=== PATIENT | male | born 1940 | race Caucasian/White ===

== ENCOUNTER 2019-04-19 01:58 | Emergency (ER) | payer MEDICARE ==
[~2019-04-19] VITALS: Ht 157.5 cm; Wt 56.7 kg
--- NOTE | 2019-04-19 02:12 | PHYS DOC ---
Adult General Chief Complaint Chief Complaint: rectal bleeding HPI HPI 78-year-old male [facility] via [facility]. He started to have rectal bleeding yesterday. He describes it as a dark red color. He is not sure if there is stool mixed in it every time or if sometimes is just blood. He's had several episodes, but is unsure how many. He is on Coumadin. His last INR check was 2 weeks ago and was 4.0. The patient decided to come in early this morning because he was feeling lightheaded and dizzy when he went to the bathroom. He thought this was not a good sign and he did not want to pass out at home. Patient does not have a history of GI bleed or ulcer. He has a port because he has multiple myeloma. He is unsure why he is on Coumadin. He denies fever or chills. Review of Systems Review of Systems Constitutional: Denies fever or chills [] Eyes: Denies change in visual acuity, redness, or eye pain [] HENT: Denies nasal congestion or sore throat [] Respiratory: Denies cough or shortness of breath [] Cardiovascular: No additional information not addressed in HPI [] GI: Denies abdominal pain, nausea, vomiting, bloody stools or diarrhea [] : Rectal bleeding[] Musculoskeletal: Denies back pain or joint pain [] Integument: Denies rash or skin lesions [] Neurologic: Dizziness. Denies headache, focal weakness or sensory changes [] Endocrine: Denies polyuria or polydipsia [] All other systems were reviewed and found to be within normal limits, except as documented in this note. Current Medications Current Medications Current Medications Medications (Trade) Dose Ordered Sig/Brody Start Time Stop Time Status Last Admin Dose Admin Pantoprazole Sodium (Protonix Vial) 80 mg 1X ONCE 04/19/19 02:15 04/19/19 02:16 UNV Sodium Chloride 1,000 ml @ 1,000 mls/hr 1X ONCE 04/19/19 02:15 04/19/19 03:14 UNV Physical Exam Physical Exam Constitutional: Well developed, well nourished, no acute distress, non-toxic appearance. [] HENT: Normocephalic, atraumatic, bilateral external ears normal, oropharynx moist, no oral exudates, nose normal. [] Eyes: PERRLA, EOMI, conjunctiva normal, no discharge. [] Neck: Normal range of motion, no tenderness, supple, no stridor. [] Cardiovascular:Heart rate 105, regular rhythm, no murmur [] Lungs & Thorax: Bilateral breath sounds clear to auscultation [] Abdomen: Bowel sounds normal, soft, no tenderness, no masses, no pulsatile masses. [] Skin: Warm, dry, no erythema, no rash. [] Back: No tenderness, no CVA tenderness. [] Extremities: No tenderness, no cyanosis, no clubbing, ROM intact, no edema. [] Neurologic: Alert and oriented X 3, normal motor function, normal sensory function, no focal deficits noted. [] Psychologic: Affect normal, judgement normal, mood normal. Rectal: Normal external exam. Dried and fresh maroon blood at opening of anus. Dark blood with FRANCISCA.[] EKG EKG [] Radiology/Procedures Radiology/Procedures [] Course & Med Decision Making Course & Med Decision Making Pertinent Labs and Imaging studies reviewed. (See chart for details) The patient's blood pressure is 102/63. His heart rate is 85. I have given 1 L of normal saline. He does have melena on rectal exam. The patient's INR is 7.8. I've given 10 mg of vitamin K IV. His hemoglobin is 11. I have no previous for comparison. I believe that his Coumadin needs to be reversed, however he does not need urgent surgery so I will not give FFP or 4 factor PCC. Patient does need to be transferred to a facility with GI available. [facility]. He will go by ambulance. I spoke with the hospitalist, Dr. Rascon and he has accepted the patient for transfer and admission. GI will be consulted in the AM. 36 minutes of critical care time was spent on this patient exclusive of other billable procedures. [] Dragon Disclaimer Dragon Disclaimer This electronic medical record was generated, in whole or in part, using a voice recognition dictation system. Departure Departure: Impression: Primary Impression: GI bleed Additional Impression: Elevated INR Disposition: 02 XFER SHT-TRM HOSP Condition: STABLE Problem Qualifiers Primary Impression: GI bleed GI bleed type/associated pathology: melena Qualified Codes: K92.1 - JEREMY Mathew DO Apr 19, 2019 02:12
[2019-04-19] MEDS ORDERED: IV NORMAL SALINE 1,000ML 1,000 ML IV ONE ×2 (02:15→04:00)
[2019-04-19] MEDS ORDERED: PANTOPRAZOLE IV 40 MG VIAL. IVP ONE (02:15)
[2019-04-19 02:36] LABS: BASO % 0 % (0-3); EOS # 0.2 x10^3/uL (0.0-0.7); EOS % 3 % (0-3); HEMATOCRIT 33.5 % (39.0-53.0); LYMPH # 0.7 x10^3/uL (1.0-4.8); LYMPH % 11 % (24-48); MEAN CORPUSCULAR HEMOGLOBIN 33 pg (25-35); MEAN CORPUSCULAR HGB CONC 33 g/dL (31-37); MEAN CORPUSCULAR VOLUME 101 fL (79-100); MONO # 0.9 x10^3/uL (0.0-1.1); MONO % 15 % (0-9); NEUT # 4.3 x10^3uL (1.8-7.7); NEUT % 70 % (31-73); PLATELET COUNT 86 x10^3/uL (140-400); RED BLOOD COUNT 3.31 x10^6/uL (4.30-5.70); RED CELL DISTRIBUTION WIDTH 14.6 % (11.5-14.5); WHITE BLOOD COUNT 6.1 x10^3/uL (4.0-11.0)
[2019-04-19 02:48] LABS: ALBUMIN 2.5 g/dL (3.4-5.0); CALCIUM 7.9 mg/dL (8.5-10.1); CREATININE 1.2 mg/dL (0.7-1.3); GFR 58.7; POTASSIUM 3.9 mmol/L (3.5-5.1); TOTAL BILIRUBIN 0.5 mg/dL (0.2-1.0)
[2019-04-19] MEDS ORDERED: PHYTONADIONE for IVPB 5 MG in IV NORMAL SALINE 50ML 50 ML IV ONE (03:15)
[2019-04-19] MEDS ORDERED: PHYTONADIONE 10 MG/ML AMPUL. ONE ×2 (03:26→03:29)
[2019-04-19] MEDS ORDERED: IV NORMAL SALINE 50ML 50 ML ONE (03:26)
[2019-04-19 03:35] VITALS: BP 109/53
== END 2019-04-19 04:10 | disposition short-term general hospital (02) ==
LOC: ER 01:58
DX: K92.2 Gastrointestinal hemorrhage, unspecified (principal); R79.1 Abnormal coagulation profile; R42 Dizziness and giddiness
CPT/HCPCS: 36415; 80053; 85025; 85610; 85730; 86850; 86900; 86901; 96361; 96365; 96375; 99291; C9113; J3430; J7030

== ENCOUNTER → 2021-01-28 | Day surgery (SDC) | payer MEDICARE, OTHER ==
[2021-01-28 10:45] VITALS: BP 132/88
== END ==
LOC: SURG 10:30
PROVIDERS: ATTEND Anesthesiology
DX: M43.06 Spondylolysis, lumbar region (principal); M54.5 Low back pain; I10 Essential (primary) hypertension; I48.91 Unspecified atrial fibrillation; G89.29 Other chronic pain; Z79.899 Other long term (current) drug therapy; Z88.0 Allergy status to penicillin; Z88.6 Allergy status to analgesic agent; Z90.49 Acquired absence of other specified parts of digestive tract; Z98.890 Other specified postprocedural states
CPT/HCPCS: 99204; G0463